=== PATIENT | male | born 1955 ===

== ENCOUNTER 2023-03-12 06:48 | Day surgery (SDC) | payer OTHER | END 2023-03-12 12:45 | disposition home or self-care (01) | LOC: AMB-ENDOS 06:48 | PROVIDERS: ATTEND Colon & Rectal Surgery | DX: D12.8 Benign neoplasm of rectum (principal); D12.4 Benign neoplasm of descending colon; K57.30 Diverticulosis of large intestine without perforation or abscess without bleeding; K64.8 Other hemorrhoids; Z20.822 Contact with and (suspected) exposure to COVID-19 ==

== ENCOUNTER 2023-04-21 06:25 | Inpatient (IN) | payer OTHER ==
[~2023-04-21] VITALS: Ht 170.2 cm; Wt 71.2 kg
[~2023-04-21 06:25] MED LIST: BENZONATATE200 M1; DIVALPROEX SODI25 GM; HALDOL DEC50 MG/1 ML; TIROSINT75 MCG
[2023-04-21] MEDS ORDERED: METRONIDAZOLE/SODIUM CHLORIDE 500 MG/100 ML PIGGYBACK IV ONE ×2 (06:58→08:45)
[2023-04-21] MEDS ORDERED: CEFTRIAXONE SODIUM 2,000 MG VIAL ONE (06:58)
[2023-04-21] MEDS ORDERED: DIBUCAINE 30 GM TUBE ONE (07:13)
[2023-04-21] MEDS ORDERED: POVIDONE-IODINE 118 ML BOTT TOP ONE ×2 (07:13→08:45)
[2023-04-21] MEDS ORDERED: HEMOSTATIC MATRIX 1 KIT KIT TOP ONE ×2 (07:13→09:00)
[2023-04-21] MEDS ORDERED: LIDOCAINE HCL/EPINEPHRINE 20 ML VIAL IJ ONE ×2 (07:13→08:45)
[2023-04-21] MEDS ORDERED: BUPIVACAINE HCL/PF 0.5% 30ML ML ONE (07:14)
[2023-04-21] MEDS ORDERED: BUPIVACAINE HCL/PF 0.5% 30ML ML IJ ONE (08:45)
[2023-04-21] MEDS ORDERED: CEFTRIAXONE SODIUM 2,000 MG VIAL IV ONE (08:45)
[2023-04-21] MEDS ORDERED: DIBUCAINE 30 GM TUBE RECTAL ONE (09:00)
[2023-04-21] MEDS ORDERED: FAMOTIDINE/PF 20 MG/10 ML SYRINGE IV PUSH SCH (09:12)
[2023-04-21] MEDS ORDERED: ONDANSETRON HCL 2 MG/ML VIAL IV PRN (09:15)
[2023-04-21] MEDS ORDERED: MORPHINE SULFATE 4 MG/ML VIAL IV PRN (09:15)
[2023-04-21] MEDS ORDERED: OxyCODONE HCL/APAP UD (PERCOCET) PO PRN (09:15)
[2023-04-21] MEDS ORDERED: RINGERS SOLUTION,LACTATED 1,000 ML IV SCH (09:15)
[2023-04-21 10:44] LABS: HEMATOCRIT 45.4 % (39.0-48.0); HEMOGLOBIN 15.4 g/dL (13-16.00); MEAN CELL VOLUME 90.9 fL (80.0-100.00); MEAN CORPUSCULAR HEMOGLOBIN 30.9 pg (27.00-32.0); PLATELET COUNT 150 K/uL (150-450); RED BLOOD COUNT 4.99 M/uL (4.00-6.00)
[2023-04-21 11:26] LABS: HEMATOCRIT 41.9 % (39.0-48.0); HEMOGLOBIN 14.4 g/dL (13-16.00); MEAN CELL VOLUME 88.9 fL (80.0-100.00); MEAN CORPUSCULAR HEMOGLOBIN 30.5 pg (27.00-32.0); MEAN CORPUSCULAR HGB CONC 34.3 g/dl (32.0-36.0); PLATELET COUNT 145 K/uL (150-450); RED BLOOD COUNT 4.72 M/uL (4.00-6.00); RED CELL DISTRIBUTION WIDTH 13.3 % (11.5-14.5)
[2023-04-21 12:31] LABS: ALBUMIN 3.2 gm/dL (3.4-5.0); CALCIUM 8.4 mg/dL (8.5-10.1); CREATININE SERUM 0.77 mg/dL (0.70-1.30); GFR 101.08; MAGNESIUM 2.1 mg/dL (1.8-2.4); PHOSPHOROUS 3.4 mg/dL (2.5-4.9); POTASSIUM 3.86 mEq/L (3.5-5.1)
[2023-04-21] MEDS ORDERED: FAMOTIDINE/PF 20 MG/2 ML VIAL ONE (13:09)
[2023-04-21] MEDS ORDERED: GABAPENTIN 300 MG CAPSULE PO SCH (17:00)
[2023-04-21] MEDS ORDERED: POLYETHYLENE GLYCOL 3350 17 GM BLIST.PACK PO SCH (17:00)
[2023-04-21] MEDS ORDERED: DIVALPROEX SODIUM 500 MG TAB.ER.24H PO SCH (17:00)
[2023-04-21] MEDS ORDERED: FAMOTIDINE/PF 20 MG/2 ML VIAL IV PUSH SCH (21:00)
[2023-04-22 05:18] LABS: HEMATOCRIT 45.5 % (39.0-48.0); HEMOGLOBIN 15.7 g/dL (13-16.00); MEAN CELL VOLUME 89.5 fL (80.0-100.00); MEAN CORPUSCULAR HEMOGLOBIN 30.9 pg (27.00-32.0); MEAN CORPUSCULAR HGB CONC 34.5 g/dl (32.0-36.0); RED BLOOD COUNT 5.08 M/uL (4.00-6.00)
[2023-04-22 05:26] LABS: PLATELET COUNT 139 K/uL (150-450)
[2023-04-22 05:42] LABS: ALBUMIN 3.4 gm/dL (3.4-5.0); CALCIUM 8.4 mg/dL (8.5-10.1); CREATININE SERUM 0.66 mg/dL (0.70-1.30); GFR 120.76; MAGNESIUM 2.2 mg/dL (1.8-2.4); PHOSPHOROUS 3.1 mg/dL (2.5-4.9); POTASSIUM 3.88 mEq/L (3.5-5.1)
[2023-04-22] MEDS ORDERED: LEVOTHYROXINE SODIUM 75 MCG TABLET PO SCH (06:00)
[2023-04-22] MEDS ORDERED: TAMSULOSIN HCL 0.4 MG CAP PO SCH (09:00)
[2023-04-22] MEDS ORDERED: HALOPERIDOL 5 MG TABLET PO SCH (09:00)
[2023-04-22] MEDS ORDERED: MAGNESIUM CHLORIDE 70 MG TABLET.DR PO SCH (09:00)
[2023-04-22] MEDS ORDERED: LACTOBACILLUS ACIDOPHILUS 1 CAP CAP PO SCH (09:00)
[2023-04-22] MEDS ORDERED: BENZTROPINE MESYLATE 1 MG TABLET PO SCH (09:00)
[2023-04-22] MEDS ORDERED: SIMVASTATIN 20 MG TABLET PO SCH (09:00)
[2023-04-22] MEDS ORDERED: HALOPERIDOL 1 MG TABLET PO SCH (09:00)
[2023-04-22] MEDS ORDERED: ONDANSETRON HCL 2 MG/ML VIAL IV PRN (10:00)
[2023-04-22] MEDS ORDERED: POLYETHYLENE GLYCOL 3350 17 GM BLIST.PACK PO SCH (17:00)
[2023-04-22] MEDS ORDERED: ENOXAPARIN SODIUM 40 MG/0.4 ML SYRINGE SUBCUTANEO SCH ×2 (17:00)
[2023-04-22] MEDS ORDERED: GABAPENTIN 300 MG CAPSULE PO SCH (17:00)
== END 2023-04-22 11:19 | disposition home or self-care (01) | DRG 349 ==
LOC: CIR.AMB 06:25 → O/R 11:12 → SURH 11:39 → CIR.AMB 15:30 → SURH 04-22 11:19
PROVIDERS: ADMIT Colon & Rectal Surgery; ATTEND Colon & Rectal Surgery
PROC: 0DBP7ZZ Excision of Rectum, Via Natural or Artificial Opening (ICD-10-PCS; principal; 2023-04-21 15:30)
DX: D12.8 Benign neoplasm of rectum (principal); Z20.822 Contact with and (suspected) exposure to COVID-19

== ENCOUNTER 2023-08-29 11:14 | Day surgery (SDC) | payer OTHER ==
[~2023-08-29 11:14] MED LIST changes: +BUPIVACAINE HCL/PF 0.25% 30ML VIAL InF NR; +CEFTRIAXONE SODIUM 2,000 MG VIAL IV NR; +DIBUCAINE 15 GM OINT..GM. TUBE RECTAL NR; +HEMOSTATIC MATRIX 1 KIT KIT TOP NR; +LIDOCAINE HCL 1%/EPINEPHRINE 20ML VIAL IJ NR; +METRONIDAZOLE/SODIUM CHLORIDE 500 MG/100 ML PIGGYBACK IV NR
[2023-08-29] MEDS ORDERED: BUPIVACAINE HCL/MPF 0.5% 30ML VIAL ONE (12:55)
[2023-08-29] MEDS ORDERED: LIDOCAINE HCL 1%/EPINEPHRINE 20ML VIAL IJ ONE (12:56)
[2023-08-29] MEDS ORDERED: POVIDONE-IODINE 118 ML BOTT TOP ONE (12:56)
[2023-08-29] MEDS ORDERED: HEMOSTATIC MATRIX 1 KIT KIT TOP ONE (12:56)
[2023-08-29] MEDS ORDERED: METRONIDAZOLE/SODIUM CHLORIDE 500 MG/100 ML PIGGYBACK IV ONE (13:04)
[2023-08-29] MEDS ORDERED: CEFTRIAXONE SODIUM 2,000 MG VIAL ONE (13:04)
== END 2023-08-29 20:30 | disposition home or self-care (01) ==
LOC: O/R 11:14 → SURH 11:14 → CIR.AMB 11:14 → SURH 13:30 → EDSTATUS 13:30 → CIR.AMB 13:30 → O/R 20:30
PROVIDERS: ATTEND Colon & Rectal Surgery
DX: C20 Malignant neoplasm of rectum (principal)